=== PATIENT | male | born 2000 | race Caucasian/White ===

== ENCOUNTER 2018-02-13 22:17 | Emergency (ER) | payer OTHER ==
[2018-02-13 22:21] VITALS: BMI 20.1
--- NOTE | 2018-02-13 22:52 | PDOC ---
History of Present Illness - General History Source: Patient Exam Limitations: No Limitations - History of Present Illness Initial Comments: 02/13/18 23:31 A portion of this note was documented by scribe services under my direction. I have reviewed the details of the note, within reason, and agree with the documentation. The case summary and management plan written by me. Assessment and plan: This is a 17-year-old male with upper respiratory tract type symptoms. Headache fever and sore throat. And body aches. Patient given Tylenol with improvement of his symptoms. A strep was done which was negative. Patient discharged told to get some Tylenol and Motrin for fever and headache and body aches and follow-up with student health service as at his college. <Estrella Best I - Last Filed: 02/13/18 23:36> - General History Source: Patient Exam Limitations: No Limitations - History of Present Illness Initial Comments: 02/13/18 23:36 The patient is a 17 year old male with no significant PMH who presents to the emergency department with nausea since this morning. The patient reports that he woke up this morning with a sore throat and subsequently began experiencing worsening nausea. He reports associated headache, cold sweats, and belly pain. He denies taking any medication for any of his symptoms. He denies any vomiting. The patient denies any other symptoms. He denies any recorded fever at home, diarrhea, constipation or any urinary symptoms. He denies any chest pain, shortness of breath, or dizziness. The patient denies any other complaints. PAST MEDICAL HISTORY: no significant history PAST SURGICAL HISTORY: no significant history FAMILY HISTORY: no pertinent history SOCIAL HISTORY: Pt is in College MEDICATIONS: reviewed ALLERGIES: As per nursing notes General: (+)cold sweats No fevers or chills, no weakness, no weight loss HEENT: No change in vision. No sore throat,. No ear pain CardioVascular: No chest pain or shortness of breath Respiratory:No cough, or wheezing. Gastrointestinal: (+)nausea, belly pain. no vomiting, diarrhea or constipation , No rectal bleeding Genitourinary: No dysuria, hematuria, or frequency Musculoskeletal: No joint or muscle pain or swelling Neurologic: (+)headache. No vertigo, dizziness or loss of consciousness Psychiatric: nor depression Skin: No rashes or easy bruising Endocrine: no increased thirst or abnormal weight change Allergic: no skin or latex allergy All other systems reviewed and normal General: Well-nourished well-developed individual, no acute distress HEENT: (+)posterior oropharynx has mild erythema Throat: Normal, tonsils normal , no exudate Neck: (+)bilateral lymphadenopathy submandibular. Supple, no meningeal signs, Eyes::Pupils equal reactive and round, extraocular motion intact Chest: Nontender to palpation Cardiac: S1-S2 normal, regular rate and rhythm, no murmurs rubs or gallops Respiratory: Lungs clear to auscultation bilateral Abdomen: Soft, nondistended, normal bowel sounds, nontender to palpation diffusely Extremities: Warm, dry, no cyanosis, clubbing, or edema Skin: No rashes Neuro: Alert and oriented x3, nonfocal exam, grossly intact, normal gait Psych: Normal mood and affect Documentation prepared by Marilu Ellsworth, acting as medical anthropologist for Estrella Best MD. <Marilu Ellsworth - Last Filed: 02/13/18 23:36> - General Chief Complaint: Nausea/Vomiting Stated Complaint: CARABALLO/FEVER/NAUSEA Time Seen by Provider: 02/13/18 22:23 Past History - Past Medical History COPD: No Psychiatric Problems: Yes - Suicide/Smoking/Psychosocial Hx Smoking History: Unknown if ever smoked Have you smoked in the past 12 months: No Number of Cigarettes Smoked Daily: 0 Information on smoking cessation initiated: No Hx Alcohol Use: No Drug/Substance Use Hx: No Substance Use Type: None <Estrella Best I - Last Filed: 02/13/18 23:36> <Marilu Ellsworth - Last Filed: 02/13/18 23:36> - Past Medical History Allergies/Adverse Reactions: Allergies Allergy/AdvReac Type Severity Reaction Status Date / Time No Known Allergies Allergy Unverified 02/13/18 22:21 Home Medications: Ambulatory Orders NK [No Known Home Medication] 02/13/18 *Physical Exam - Vital Signs Last Vital Signs Temp Pulse Resp BP Pulse Ox 102.8 F H 110 H 15 101/65 98 02/13/18 22:18 02/13/18 22:18 02/13/18 22:18 02/13/18 22:18 02/13/18 22:18 <Estrella Best I - Last Filed: 02/13/18 23:36> - Vital Signs Last Vital Signs Temp Pulse Resp BP Pulse Ox 102.8 F H 110 H 15 101/65 98 02/13/18 22:18 02/13/18 22:18 02/13/18 22:18 02/13/18 22:18 02/13/18 22:18 <Marilu Ellsworth - Last Filed: 02/13/18 23:36> ED Treatment Course - ADDITIONAL ORDERS Additional order review: 02/13/18 23:05 Group A Strep Rapid Antigen - Final Throat - Medications Given in the ED: ED Medications Discontinued Medications Generic Name Dose Route Start Last Admin Trade Name Tyrone PRN Reason Stop Dose Admin Acetaminophen 1,000 mg 02/13/18 22:57 02/13/18 23:01 Tylenol - PO 02/13/18 22:58 1,000 mg ONCE ONE Administration Ondansetron HCl 4 mg 02/13/18 22:57 02/13/18 23:02 Zofran Odt - SL 02/13/18 22:58 4 mg ONCE ONE Administration <Marilu Ellsworth - Last Filed: 02/13/18 23:36> *DC/Admit/Observation/Transfer - Discharge Dispostion Decision to Admit order: Yes <Estrella Best I - Last Filed: 02/13/18 23:36> <Marilu Ellsworth - Last Filed: 02/13/18 23:36> Diagnosis at time of Disposition: Viral upper respiratory illness - Discharge Dispostion Disposition: HOME Condition at time of disposition: Good - Patient Instructions Printed Discharge Instructions: DI for Viral Upper Respiratory Infection -- Adult Additional Instructions: On your way back to the dorm pick up man some Tylenol and Motrin. Take it as directed on the bottle you can alternate it as often as every 3 hours for headache, fever, body aches. When you pick up man the Tylenol and Motrin also get a thermometer so that you can monitor your temperature. Return to the emergency department immediately with ANY new, persistent or worsening symptoms. Continue any medications as previously prescribed by your physician. You should follow up with your student health service as soon as possible regarding today's emergency department visit. . Please make sure your doctor reviews the results of your emergency evaluation. Thank you for coming to the Emergency Department today for your care. It was a pleasure to see you today. Please note that your evaluation is INCOMPLETE until you follow-up with your doctor.
[2018-02-13] MEDS ORDERED: ACETAMINOPHEN 500 MG TABLET (FP) PO ONE (22:57)
[2018-02-13] MEDS ORDERED: ONDANSETRON *ODT* 4 MG TABLET SL ONE (22:57)
[2018-02-13] MEDS ORDERED: ACETAMINOPHEN 325 MG TABLET (FP) ONE (23:02)
[2018-02-13] MEDS ORDERED: ONDANSETRON *ODT* 4 MG TABLET ONE (23:03)
[2018-02-14] MEDS ORDERED: SODIUM CHLORIDE 1,000 ML IV ONE (00:04)
[2018-02-14] MEDS ORDERED: KETOROLAC TROMETHAMINE 30 MG/1 ML VIAL IVPUSH ONE (00:05)
--- NOTE | 2018-02-14 00:16 | PDOC ---
*Physical Exam - Vital Signs Last Vital Signs Temp Pulse Resp BP Pulse Ox 102.8 F H 110 H 15 101/65 98 02/13/18 22:18 02/13/18 22:18 02/13/18 22:18 02/13/18 22:18 02/13/18 22:18 ED Treatment Course - LABORATORY CBC & Chemistry Diagram: 02/14/18 00:32 - ADDITIONAL ORDERS Additional order review: 02/13/18 23:05 Group A Strep Rapid Antigen - Final Throat - Medications Given in the ED: ED Medications Discontinued Medications Generic Name Dose Route Start Last Admin Trade Name Tyrone PRN Reason Stop Dose Admin Acetaminophen 1,000 mg 02/13/18 22:57 02/13/18 23:01 Tylenol - PO 02/13/18 22:58 1,000 mg ONCE ONE Administration Ondansetron HCl 4 mg 02/13/18 22:57 02/13/18 23:02 Zofran Odt - SL 02/13/18 22:58 4 mg ONCE ONE Administration Progress Note - Progress Note Progress Note: Post completion signature of patient's chart patient began to feel worse again and did not feel ready to go home. So IV was put patient was given a liter of fluid and Toradol by IV. In addition to data CBC was sent. *DC/Admit/Observation/Transfer Diagnosis at time of Disposition: Viral upper respiratory illness - Discharge Dispostion Disposition: HOME Condition at time of disposition: Good - Referrals - Patient Instructions Printed Discharge Instructions: DI for Viral Upper Respiratory Infection -- Adult Additional Instructions: On your way back to the dorm cigar packer and picker some Tylenol and Motrin. Take it as directed on the bottle you can alternate it as often as every 3 hours for headache, fever, body aches. When you cigar packer and picker the Tylenol and Motrin also get a thermometer so that you can monitor your temperature. Return to the emergency department immediately with ANY new, persistent or worsening symptoms. Continue any medications as previously prescribed by your physician. You should follow up with your student health service as soon as possible regarding today's emergency department visit. . Please make sure your doctor reviews the results of your emergency evaluation. Thank you for coming to the Emergency Department today for your care. It was a pleasure to see you today. Please note that your evaluation is INCOMPLETE until you follow-up with your doctor. - Post Discharge Activity
[2018-02-14] MEDS ORDERED: KETOROLAC TROMETHAMINE 30 MG/1 ML VIAL ONE (00:28)
[2018-02-14 00:55] LABS: BASO % 0.3 % (0-2.0); HEMATOCRIT 41.3 % (35.4-49); HEMOGLOBIN 13.4 GM/dL (11.7-16.9); LYMPH % 3.6 % (8-40); MCH 27.6 pg (25.7-33.7); MCHC 32.6 g/dl (32.0-35.9); MEAN CELL VOLUME 84.9 fl (80-96); MEAN PLT VOLUME 10.9 fl (7.5-11.1); MONO % 6.9 % (3.8-10.2); NEUT % 89.2 % (42.8-82.8); PLATELET COUNT 210 K/MM3 (134-434); RBC 4.87 M/mm3 (4.00-5.60)
[2018-02-14 01:26] VITALS: BP 107/60; PULSE 72; TEMP 98.2
== END 2018-02-14 01:20 | disposition home or self-care (01) ==
LOC: FER 22:17
PROC: 3E0333Z Introduction of Anti-inflammatory into Peripheral Vein, Percutaneous Approach (ICD-10-PCS; principal; 2018-02-13)
PROC: 3E0337Z Introduction of Electrolytic and Water Balance Substance into Peripheral Vein, Percutaneous Approach (ICD-10-PCS; 2018-02-13)
DX: J06.9 Acute upper respiratory infection, unspecified (principal); B97.89 Other viral agents as the cause of diseases classified elsewhere; F99 Mental disorder, not otherwise specified
CPT/HCPCS: 36415; 85025; 87070; 87430; 99283-25; J7030; Q0162

== ENCOUNTER 2018-06-04 06:04 | Emergency (ER) | payer OTHER ==
[2018-06-04 06:15] VITALS: BP 121/89; PULSE 68; TEMP 98.3; BMI 20.1
[2018-06-04] MEDS ORDERED: MAG HYDROX/AL HYDROX/SIMETH 30 ML UNIT-DOSE CUP PO ONE (06:31)
--- NOTE | 2018-06-04 06:31 | PDOC ---
History of Present Illness - General Chief Complaint: Chest Pain Stated Complaint: CHEST PAIN SINCE SUNDAY Time Seen by Provider: 06/04/18 06:25 History Source: Patient Exam Limitations: No Limitations - History of Present Illness Initial Comments: 06/04/18 06:35 This is a 18-year-old male who comes in complaining of chest pain 2 days. Patient said that it began after he swallowed a doxycycline without any liquid. Patient then went out and had some beers and was smoking and made it worse. Patient now comes in for evaluation as it has not resolved. Patient denies history of similar symptoms in the past. Patient denies any cough, congestion, shortness of breath, nausea, diaphoresis. Patient says he has a history of anxiety and thinks that may be also making it worse. Allergies: None Past Medical History: none Social history: Lives with family. No smoking. No alcohol. No illicit drugs. Surgical history: None General: No fevers or chills, no weakness, no weight loss HEENT: No change in vision. No sore throat,. No ear pain CardioVascular: no chest discomfort. No shortness of breath Respiratory:No cough, or wheezing. Gastrointestinal: no nausea, vomiting, diarrhea or constipation, No rectal bleeding Genitourinary: No dysuria, hematuria, or frequency Musculoskeletal: No joint or muscle pain or swelling Neurologic: No headache, vertigo, dizziness or loss of consciousness Psychiatric: nor depression Skin: No rashes or easy bruising Endocrine: no increased thirst or abnormal weight change Allergic: no skin or latex allergy All other systems reviewed and normal Exam: General: Well-nourished well-developed individual, no acute distress HEENT: Throat: Normal, tonsils normal, no erythema or exudate Neck: Supple, no meningeal signs, no lymphadenopathy Eyes::Pupils equal reactive and round, extraocular motion intact Chest: Nontender to palpation Cardiac: S1-S2 normal, regular rate and rhythm, no murmurs rubs or gallops Respiratory: Lungs clear to auscultation bilateral Abdomen: Soft, nondistended, normal bowel sounds, there is no tenderness on palpation diffusely Extremities: Warm, dry, no cyanosis, clubbing, or edema Skin: No rashes Neuro: Alert and oriented x3, CN II - XII intact, nonfocal exam with normal strength, normal sensation, normal reflexes, normal gait, Psych: Normal mood and affect EKG normal sinus rhythm with a rate of 64, normal intervals no acute ST-T wave changes with occasional PAC. Otherwise normal Assessment and plan: This is a 18-year-old male who comes in complaining of chest pain. Patient's EKG was normal. Patient's discomfort is most likely secondary to a pill esophagitis from doxycycline. Patient discharged home will follow-up with his primary care doctor if symptoms don't resolve over the next few days. Past History - Past Medical History Allergies/Adverse Reactions: Allergies Allergy/AdvReac Type Severity Reaction Status Date / Time No Known Allergies Allergy Verified 06/04/18 06:06 Home Medications: Ambulatory Orders Escitalopram Oxalate [Lexapro -] 60 mg PO DAILY 06/04/18 COPD: No Psychiatric Problems: Yes (DEPRESSION) - Suicide/Smoking/Psychosocial Hx Smoking History: Never smoked Have you smoked in the past 12 months: No Number of Cigarettes Smoked Daily: 0 Information on smoking cessation initiated: No Hx Alcohol Use: Yes (SOCIAL) Drug/Substance Use Hx: Yes (MARIJUANA) Substance Use Type: None *Physical Exam - Vital Signs Last Vital Signs Temp Pulse Resp BP Pulse Ox 98.3 F 68 16 121/89 100 06/04/18 06:11 06/04/18 06:11 06/04/18 06:11 06/04/18 06:11 06/04/18 06:11 Moderate Sedation - Procedure Monitoring Vital Signs: Procedure Monitoring Vital Signs Temperature 98.3 F 06/04/18 06:11 Pulse Rate 68 06/04/18 06:11 Respiratory Rate 16 06/04/18 06:11 Blood Pressure 121/89 06/04/18 06:11 O2 Sat by Pulse Oximetry (%) 100 06/04/18 06:11 ED Treatment Course - Medications Given in the ED: ED Medications Discontinued Medications Generic Name Dose Route Start Last Admin Trade Name Freq PRN Reason Stop Dose Admin Al Hydroxide/Mg Hydroxide 30 ml 06/04/18 06:31 06/04/18 06:34 Mylanta Oral Suspension - PO 06/04/18 06:32 30 ml ONCE ONE Administration *DC/Admit/Observation/Transfer Diagnosis at time of Disposition: Pill esophagitis - Discharge Dispostion Disposition: HOME Condition at time of disposition: Stable Decision to Admit order: No - Referrals - Patient Instructions Additional Instructions: Do not smoke or drink alcohol until the symptoms resolve. Avoid real spacey and citrusy foods until the symptoms resolve. You can take some Maalox or Mylanta for the discomfort as needed Return to the emergency department immediately with ANY new, persistent or worsening symptoms. Continue any medications as previously prescribed by your physician. You should follow up with your primary doctor as soon as possible regarding today's emergency department visit. . Please make sure your doctor reviews the results of your emergency evaluation. Thank you for coming to the Emergency Department today for your care. It was a pleasure to see you today. Please note that your evaluation is INCOMPLETE until you follow-up with your doctor. - Post Discharge Activity
[2018-06-04] MEDS ORDERED: MAG HYDROX/AL HYDROX/SIMETH 30 ML UNIT-DOSE CUP ONE (06:32)
--- NOTE | 2018-06-04 15:50 | EKG ---
Test Reason : Blood Pressure : / mmHG Vent. Rate : 064 BPM Atrial Rate : 064 BPM P-R Int : 132 ms QRS Dur : 084 ms QT Int : 388 ms P-R-T Axes : 050 062 055 degrees QTc Int : 400 ms SINUS RHYTHM WITH PREMATURE ATRIAL COMPLEXES OTHERWISE NORMAL ECG NO PREVIOUS ECGS AVAILABLE Confirmed by Oseas Samuel ([id number]) on 06/04/2018 3:50:32 PM Referred By: STEWART HDEZ Confirmed By:Oseas Samuel
== END 2018-06-04 06:41 | disposition home or self-care (01) ==
LOC: FER 06:04
DX: T36.4X5A Adverse effect of tetracyclines, initial encounter (principal); R07.9 Chest pain, unspecified; F32.9 Major depressive disorder, single episode, unspecified; K20.8 Other esophagitis
CPT/HCPCS: 93005; 99281-25